=== PATIENT | female | born 1950 | race Caucasian/White ===

== ENCOUNTER 2019-02-26 18:50 | Inpatient (IN) | payer MEDICARE ==
[~2019-02-26] VITALS: Ht 167.6 cm; Wt 69.0 kg
[2019-02-26 20:00] VITALS: BP 130/69
[2019-02-26 20:30] VITALS: BP 130/69
[2019-02-26] MEDS ORDERED: ACETAMINOPHEN 650MG SUPP PR PRN (21:15)
[2019-02-26] MEDS ORDERED: IPRATROPIUM/ALBUTEROL 0.5-3(2.5)MG/3ML NEB HHN PRN (21:15)
[2019-02-26] MEDS ORDERED: DEXTROSE 50% WATER 50ML SYRINGE IV PRN ×2 (21:15→23:30)
[2019-02-26] MEDS ORDERED: INSULIN GLARGINE UD 100 UNITS/ML SYR SUBCUT SCH (22:00)
[2019-02-26] MEDS: ATORVASTATIN CALCIUM 40MG TABLET PO SCH (23:00)
[2019-02-26] MEDS: LISINOPRIL 20MG TABLET PO SCH (23:00)
[2019-02-26] MEDS: DEXAMETHASONE 4MG/ML 1ML VIAL IV SCH (23:01)
[2019-02-27] MEDS: LEVETIRACETAM 500 MG in SODIUM CHLORIDE 0.9% 100 ML IV SCH ×2 (05:41→09:05)
[2019-02-27] MEDS: INSULIN LISPRO 100 UNITS/ML SUBCUT SCH ×4 (06:00→17:28)
[2019-02-27 06:37] LABS: BASOPHILS % 0.2 % (0.0-2.0); EOSINOPHILS % 0.2 % (0.0-5.0); HEMATOCRIT. 37.5 % (36.0-48.0); HEMOGLOBIN. 12.6 g/dL (12.0-16.0); LYMPHOCYTES % 13.7 % (20.0-50.0); MEAN CORPUSCULAR HEMOGLOBIN 28.5 pg (28.0-32.0); MEAN CORPUSCULAR VOLUME 84.5 fL (81.0-99.0); MEAN PLATELET VOLUME 8.9 fl (7.4-10.4); MONOCYTES % 5.8 % (2.0-8.0); NEUTROPHILS % 80.1 % (40.0-76.0); PLATELET 265 x1000/uL (130-400); RED BLOOD CELL COUNT 4.43 mill/uL (4.2-5.4); RED CELL DISTRIBUTION WIDTH 13.4 % (11.6-14.6)
[2019-02-27] MEDS: BLOOD SUGAR DIAGNOSTIC STRIP TEST SCH ×4 (06:47→17:26)
[2019-02-27 07:12] LABS: CHLORIDE 112 mEq/L (98-107)
[2019-02-27 08:07] VITALS: BP 155/80
[2019-02-27] MEDS: DEXAMETHASONE 4MG/ML 1ML VIAL IV SCH (09:08)
[2019-02-27] MEDS: AMLODIPINE 5MG TABLET PO SCH (09:08)
[2019-02-27] MEDS: FAMOTIDINE 20MG TABLET PO SCH (09:08)
[2019-02-27] MEDS: LISINOPRIL 20MG TABLET PO SCH ×2 (09:08→21:19)
[2019-02-27] MEDS ORDERED: LEVOFLOXACIN 250MG PREMIX 50 ML IV SCH (10:00)
[2019-02-27] MEDS: LEVOFLOXACIN 250MG TABLET PO SCH (11:41)
[2019-02-27 16:55] LABS: CLARITY URINE CLEAR (CLEAR); COLOR URINE YELLOW (YELLOW); KETONES URINE NEGATIVE (NEGATIVE); LEUKOCYTE ESTERASE URINE TRACE (NEGATIVE); NITRITE URINE NEGATIVE (NEGATIVE); OCCULT BLOOD URINE TRACE (NEGATIVE); PH URINE 5.5 (4.5-8.0); PROTEIN URINE NEGATIVE (NEGATIVE); SPECIFIC GRAVITY URINE 1.011 (1.005-1.030); UROBILINOGEN URINE 0.2 E.U./dL (0.2-1.0)
[2019-02-27 20:00] VITALS: BP 167/83
[2019-02-27] MEDS: ATORVASTATIN CALCIUM 40MG TABLET PO SCH (21:18)
[2019-02-27] MEDS: LEVETIRACETAM 500MG TABLET PO SCH (21:19)
[2019-02-27 22:00] VITALS: BP 133/65
[2019-02-27] MEDS: INSULIN GLARGINE UD 100 UNITS/ML SYR SUBCUT SCH (22:00)
[2019-02-28] MEDS: BLOOD SUGAR DIAGNOSTIC STRIP TEST SCH ×4 (00:37→17:16)
[2019-02-28] MEDS: INSULIN LISPRO 100 UNITS/ML SUBCUT SCH ×4 (05:52→17:16)
[2019-02-28 08:00] VITALS: BP 156/80
[2019-02-28] MEDS: ACETAMINOPHEN 325MG TABLET PO PRN (08:52)
[2019-02-28] MEDS: FAMOTIDINE 20MG TABLET PO SCH (08:52)
[2019-02-28] MEDS: AMLODIPINE 5MG TABLET PO SCH ×2 (08:52→17:13)
[2019-02-28] MEDS: LEVETIRACETAM 500MG TABLET PO SCH ×2 (08:53→21:51)
[2019-02-28] MEDS: LISINOPRIL 20MG TABLET PO SCH ×2 (08:53→21:52)
[2019-02-28] MEDS ORDERED: IOHEXOL-350 100 ML BOTTLE ONE (11:29)
[2019-02-28] MEDS: LEVOFLOXACIN 250MG TABLET PO SCH (11:41)
[2019-02-28] MEDS: TRAMADOL 50MG TABLET PO PRN ×2 (16:50→22:56)
[2019-02-28 20:00] VITALS: BP 162/92
[2019-02-28] MEDS: ONDANSETRON HCL 4MG TABLET PO PRN (20:17)
[2019-02-28] MEDS: CLONIDINE 0.1MG TABLET PO PRN (20:29)
[2019-02-28] MEDS: ATORVASTATIN CALCIUM 40MG TABLET PO SCH (21:51)
[2019-02-28] MEDS: INSULIN GLARGINE UD 100 UNITS/ML SYR SUBCUT SCH (21:56)
[2019-02-28 22:52] LABS: CLARITY URINE CLEAR (CLEAR); COLOR URINE YELLOW (YELLOW); KETONES URINE NEGATIVE (NEGATIVE); LEUKOCYTE ESTERASE URINE NEGATIVE (NEGATIVE); NITRITE URINE NEGATIVE (NEGATIVE); OCCULT BLOOD URINE NEGATIVE (NEGATIVE); PROTEIN URINE NEGATIVE (NEGATIVE); SPECIFIC GRAVITY URINE 1.013 (1.005-1.030); UROBILINOGEN URINE 0.2 E.U./dL (0.2-1.0)
[2019-03-01] MEDS: INSULIN LISPRO 100 UNITS/ML SUBCUT SCH ×5 (01:56→21:45)
[2019-03-01] MEDS: CLONIDINE 0.1MG TABLET PO PRN ×2 (01:57→09:34)
[2019-03-01 06:36] LABS: BASOPHILS % 0.2 % (0.0-2.0); EOSINOPHILS % 0.4 % (0.0-5.0); HEMOGLOBIN. 12.6 g/dL (12.0-16.0); LYMPHOCYTES % 9.9 % (20.0-50.0); MEAN CORPUSCULAR HEMOGLOBIN 28.1 pg (28.0-32.0); MEAN CORPUSCULAR VOLUME 84.4 fL (81.0-99.0); MEAN PLATELET VOLUME 8.9 fl (7.4-10.4); NEUTROPHILS % 83.5 % (40.0-76.0); PLATELET 245 x1000/uL (130-400); RED CELL DISTRIBUTION WIDTH 13.5 % (11.6-14.6)
[2019-03-01] MEDS: BLOOD SUGAR DIAGNOSTIC STRIP TEST SCH ×6 (06:39→20:15)
[2019-03-01] MEDS: AMLODIPINE 5MG TABLET PO SCH ×2 (06:39→17:27)
[2019-03-01 06:53] LABS: CHLORIDE 100 mEq/L (98-107)
[2019-03-01 07:02] LABS: PHOSPHORUS 3.5 mg/dL (2.5-4.9)
[2019-03-01 07:03] LABS: LDL CHOLESTEROL 100 mg/dL (5-100)
[2019-03-01 07:05] LABS: HDL CHOLESTEROL 46 mg/dL (40-59)
[2019-03-01 07:06] LABS: FOLIC ACID (FOLATE) SERUM 18.9 ng/mL (>5.38)
[2019-03-01 07:13] LABS: TOTAL IRON BINDING CAPACITY 303 ug/dL (250-450)
[2019-03-01 08:07] VITALS: BP 151/68
[2019-03-01] MEDS: LEVETIRACETAM 500MG TABLET PO SCH ×2 (08:48→20:14)
[2019-03-01] MEDS: FAMOTIDINE 20MG TABLET PO SCH (08:48)
[2019-03-01] MEDS: LISINOPRIL 20MG TABLET PO SCH ×2 (08:48→20:15)
[2019-03-01] MEDS: TRAMADOL 50MG TABLET PO PRN ×2 (08:49→15:30)
[2019-03-01] MEDS ORDERED: CYANOCOBALAMIN 1000MCG/ML VIAL IM SCH (09:00)
[2019-03-01] MEDS: MAGNESIUM OXIDE 400MG TABLET PO SCH ×2 (09:34→20:14)
[2019-03-01] MEDS: ONDANSETRON HCL 4MG TABLET PO PRN (09:34)
[2019-03-01] MEDS: LEVOFLOXACIN 250MG TABLET PO SCH (11:13)
[2019-03-01] MEDS: ACETAMINOPHEN 325MG TABLET PO PRN (12:06)
[2019-03-01 15:31] VITALS: BP 125/61
[2019-03-01 20:00] VITALS: BP 107/61
[2019-03-01] MEDS: ATORVASTATIN CALCIUM 40MG TABLET PO SCH (20:14)
[2019-03-01] MEDS ORDERED: INSULIN LISPRO 100 UNITS/ML SUBCUT SCH (21:00)
[2019-03-01] MEDS: INSULIN GLARGINE UD 100 UNITS/ML SYR SUBCUT SCH (21:46)
[2019-03-02] MEDS: BLOOD SUGAR DIAGNOSTIC STRIP TEST SCH ×4 (05:27→21:38)
[2019-03-02] MEDS: AMLODIPINE 5MG TABLET PO SCH ×2 (05:27→17:13)
[2019-03-02] MEDS: INSULIN LISPRO 100 UNITS/ML SUBCUT SCH ×4 (06:13→21:52)
[2019-03-02 06:34] LABS: CHLORIDE 100 mEq/L (98-107)
[2019-03-02 06:48] LABS: BASOPHILS % 0.5 % (0.0-2.0); HEMATOCRIT. 36.6 % (36.0-48.0); HEMOGLOBIN. 12.3 g/dL (12.0-16.0); LYMPHOCYTES % 15.4 % (20.0-50.0); MEAN CORPUSCULAR HEMOGLOBIN 28.3 pg (28.0-32.0); MEAN CORPUSCULAR VOLUME 84.6 fL (81.0-99.0); MEAN PLATELET VOLUME 8.6 fl (7.4-10.4); MONOCYTES % 7.9 % (2.0-8.0); NEUTROPHILS % 75.2 % (40.0-76.0); PLATELET 241 x1000/uL (130-400); RED BLOOD CELL COUNT 4.32 mill/uL (4.2-5.4); RED CELL DISTRIBUTION WIDTH 13.5 % (11.6-14.6)
[2019-03-02 06:51] LABS: T4 FREE 1.05 ng/dL (0.76-1.46)
[2019-03-02] MEDS: LEVETIRACETAM 500MG TABLET PO SCH ×2 (08:18→21:33)
[2019-03-02] MEDS: TRAMADOL 50MG TABLET PO PRN (08:18)
[2019-03-02] MEDS: LISINOPRIL 20MG TABLET PO SCH (08:18)
[2019-03-02] MEDS: FAMOTIDINE 20MG TABLET PO SCH (08:18)
[2019-03-02] MEDS: MAGNESIUM OXIDE 400MG TABLET PO SCH (08:18)
[2019-03-02 08:25] VITALS: BP 154/70
[2019-03-02] MEDS: ONDANSETRON HCL 4MG TABLET PO PRN (08:45)
[2019-03-02] MEDS: CLONIDINE 0.1MG TABLET PO PRN ×2 (09:23→18:29)
[2019-03-02] MEDS ORDERED: OXYCODONE HCL 5MG TABLET PO PRN (09:45)
[2019-03-02] MEDS ORDERED: NA PHOS,M-B/NA PHOS,DI-BA ENEMA 118ML PR NR (09:45)
[2019-03-02] MEDS: SORBITOL 70% SOLN 30ML PO NR ×2 (10:01→10:15)
[2019-03-02 11:00] VITALS: BP 135/67
[2019-03-02] MEDS ORDERED: BISACODYL 10MG SUPP PR NR (11:00)
[2019-03-02] MEDS: LEVOFLOXACIN 250MG TABLET PO SCH (12:01)
[2019-03-02] MEDS: LACTULOSE 20G/30ML UDC PO SCH ×3 (12:53→21:33)
[2019-03-02] MEDS: NEBIVOLOL HCL 5 MG TABLET PO SCH (13:39)
[2019-03-02] MEDS: DOCUSATE SODIUM 100MG CAPSULE PO SCH (16:33)
[2019-03-02] MEDS: BUTALBITAL/ACETAMINOPHEN/CAFFEINE 50/325/40MG TABLET PO PRN (18:30)
[2019-03-02 20:00] VITALS: BP 113/47
[2019-03-02] MEDS ORDERED: AMLODIPINE 5MG TABLET PO SCH (21:00)
[2019-03-02] MEDS: ATORVASTATIN CALCIUM 40MG TABLET PO SCH (21:33)
[2019-03-02] MEDS: POLYETHYLENE GLYCOL 3350 (17GM) 1 DOSE PACK PO SCH (21:33)
[2019-03-02] MEDS: LISINOPRIL 10MG TABLET PO SCH (21:38)
[2019-03-02] MEDS: INSULIN GLARGINE UD 100 UNITS/ML SYR SUBCUT SCH (21:52)
[2019-03-03] MEDS: INSULIN LISPRO 100 UNITS/ML SUBCUT SCH ×4 (05:32→22:07)
[2019-03-03] MEDS: BLOOD SUGAR DIAGNOSTIC STRIP TEST SCH ×4 (05:32→21:48)
[2019-03-03] MEDS: AMLODIPINE 5MG TABLET PO SCH ×2 (05:32→17:59)
[2019-03-03 06:53] LABS: BASOPHILS % 0.7 % (0.0-2.0); EOSINOPHILS % 1.1 % (0.0-5.0); HEMATOCRIT. 37.1 % (36.0-48.0); HEMOGLOBIN. 12.3 g/dL (12.0-16.0); LYMPHOCYTES % 22.6 % (20.0-50.0); MEAN CORPUSCULAR HEMOGLOBIN 28.2 pg (28.0-32.0); MEAN PLATELET VOLUME 8.7 fl (7.4-10.4); MONOCYTES % 9.5 % (2.0-8.0); NEUTROPHILS % 66.1 % (40.0-76.0); PLATELET 272 x1000/uL (130-400); RED BLOOD CELL COUNT 4.36 mill/uL (4.2-5.4); RED CELL DISTRIBUTION WIDTH 13.4 % (11.6-14.6)
[2019-03-03 06:58] LABS: CHLORIDE 104 mEq/L (98-107)
[2019-03-03 08:00] VITALS: BP 135/53
[2019-03-03] MEDS: ACETAMINOPHEN 325MG TABLET PO PRN (09:23)
[2019-03-03] MEDS: LEVETIRACETAM 500MG TABLET PO SCH ×2 (09:55→21:48)
[2019-03-03] MEDS: NEBIVOLOL HCL 5 MG TABLET PO SCH (09:56)
[2019-03-03] MEDS: FAMOTIDINE 20MG TABLET PO SCH (09:56)
[2019-03-03] MEDS: DOCUSATE SODIUM 100MG CAPSULE PO SCH ×2 (09:56→17:59)
[2019-03-03] MEDS: LISINOPRIL 10MG TABLET PO SCH ×2 (09:56→21:48)
[2019-03-03] MEDS: BUTALBITAL/ACETAMINOPHEN/CAFFEINE 50/325/40MG TABLET PO PRN (11:13)
[2019-03-03] MEDS: LEVOFLOXACIN 250MG TABLET PO SCH (11:13)
[2019-03-03 20:00] VITALS: BP 128/79
[2019-03-03] MEDS: POLYETHYLENE GLYCOL 3350 (17GM) 1 DOSE PACK PO SCH (21:48)
[2019-03-03] MEDS: ATORVASTATIN CALCIUM 40MG TABLET PO SCH (21:48)
[2019-03-03] MEDS: INSULIN GLARGINE UD 100 UNITS/ML SYR SUBCUT SCH (22:07)
[2019-03-04] MEDS: AMLODIPINE 5MG TABLET PO SCH ×2 (05:41→17:18)
[2019-03-04] MEDS: BLOOD SUGAR DIAGNOSTIC STRIP TEST SCH ×4 (05:41→21:33)
[2019-03-04] MEDS: INSULIN LISPRO 100 UNITS/ML SUBCUT SCH ×3 (05:41→17:18)
[2019-03-04 06:37] LABS: BASOPHILS % 0.3 % (0.0-2.0); EOSINOPHILS % 1.2 % (0.0-5.0); HEMATOCRIT. 36.7 % (36.0-48.0); HEMOGLOBIN. 12.5 g/dL (12.0-16.0); LYMPHOCYTES % 21.3 % (20.0-50.0); MEAN CORPUSCULAR HEMOGLOBIN 28.7 pg (28.0-32.0); MEAN CORPUSCULAR VOLUME 84.5 fL (81.0-99.0); MEAN PLATELET VOLUME 8.2 fl (7.4-10.4); MONOCYTES % 8.2 % (2.0-8.0); PLATELET 292 x1000/uL (130-400); RED BLOOD CELL COUNT 4.35 mill/uL (4.2-5.4); RED CELL DISTRIBUTION WIDTH 13.4 % (11.6-14.6)
[2019-03-04 07:17] LABS: CHLORIDE 103 mEq/L (98-107)
[2019-03-04 08:25] VITALS: BP 147/71
[2019-03-04] MEDS: FAMOTIDINE 20MG TABLET PO SCH (08:34)
[2019-03-04] MEDS: NEBIVOLOL HCL 5 MG TABLET PO SCH (08:34)
[2019-03-04] MEDS: LEVETIRACETAM 500MG TABLET PO SCH ×2 (08:34→21:16)
[2019-03-04] MEDS: LISINOPRIL 10MG TABLET PO SCH (08:34)
[2019-03-04] MEDS: DOCUSATE SODIUM 100MG CAPSULE PO SCH ×2 (08:34→17:18)
[2019-03-04] MEDS: LEVOFLOXACIN 250MG TABLET PO SCH (11:27)
[2019-03-04] MEDS: LEVOTHYROXINE SODIUM 25MCG TABLET PO SCH (11:27)
[2019-03-04 11:30] VITALS: BP 150/74
[2019-03-04] MEDS: BUTALBITAL/ACETAMINOPHEN/CAFFEINE 50/325/40MG TABLET PO PRN (11:37)
[2019-03-04 20:00] VITALS: BP 167/67
[2019-03-04] MEDS: ATORVASTATIN CALCIUM 40MG TABLET PO SCH (21:16)
[2019-03-04] MEDS: LISINOPRIL 20MG TABLET PO SCH (21:17)
[2019-03-04] MEDS: POLYETHYLENE GLYCOL 3350 (17GM) 1 DOSE PACK PO SCH (21:17)
[2019-03-04] MEDS: INSULIN GLARGINE UD 100 UNITS/ML SYR SUBCUT SCH (21:37)
[2019-03-05 04:15] LABS: 25-HYDROXY VITAMIN D3 15 ng/mL (.)
[2019-03-05] MEDS: BLOOD SUGAR DIAGNOSTIC STRIP TEST SCH ×4 (06:01→21:30)
[2019-03-05] MEDS: AMLODIPINE 5MG TABLET PO SCH ×2 (06:02→17:55)
[2019-03-05] MEDS: LEVOTHYROXINE SODIUM 25MCG TABLET PO SCH (06:02)
[2019-03-05] MEDS: INSULIN LISPRO (HIGH DOSE) 100 UNITS/ML SUBCUT SCH ×3 (06:02→17:00)
[2019-03-05 06:58] LABS: CHLORIDE 104 mEq/L (98-107)
[2019-03-05] MEDS ORDERED: INSULIN LISPRO 100 UNITS/ML SUBCUT SCH (07:00)
[2019-03-05 07:05] LABS: BASOPHILS % 0.5 % (0.0-2.0); EOSINOPHILS % 0.8 % (0.0-5.0); HEMATOCRIT. 37.4 % (36.0-48.0); HEMOGLOBIN. 12.6 g/dL (12.0-16.0); LYMPHOCYTES % 19.7 % (20.0-50.0); MEAN CORPUSCULAR HEMOGLOBIN 28.4 pg (28.0-32.0); MEAN CORPUSCULAR VOLUME 84.5 fL (81.0-99.0); MEAN PLATELET VOLUME 8.4 fl (7.4-10.4); MONOCYTES % 6.5 % (2.0-8.0); NEUTROPHILS % 72.5 % (40.0-76.0); PLATELET 286 x1000/uL (130-400); RED BLOOD CELL COUNT 4.43 mill/uL (4.2-5.4); RED CELL DISTRIBUTION WIDTH 13.5 % (11.6-14.6)
[2019-03-05 08:02] VITALS: BP 133/62
[2019-03-05] MEDS: LISINOPRIL 20MG TABLET PO SCH ×2 (08:21→21:29)
[2019-03-05] MEDS: DOCUSATE SODIUM 100MG CAPSULE PO SCH ×2 (08:21→17:52)
[2019-03-05] MEDS: LEVETIRACETAM 500MG TABLET PO SCH ×2 (08:22→21:28)
[2019-03-05] MEDS: NEBIVOLOL HCL 5 MG TABLET PO SCH (08:22)
[2019-03-05] MEDS: FAMOTIDINE 20MG TABLET PO SCH (08:22)
[2019-03-05] MEDS: BUTALBITAL/ACETAMINOPHEN/CAFFEINE 50/325/40MG TABLET PO PRN (08:33)
[2019-03-05] MEDS ORDERED: ERGOCALCIFEROL 50000UNITS CAPSULE PO SCH (13:30)
[2019-03-05 20:00] VITALS: BP 152/71
[2019-03-05] MEDS: ATORVASTATIN CALCIUM 40MG TABLET PO SCH (21:28)
[2019-03-05] MEDS: POLYETHYLENE GLYCOL 3350 (17GM) 1 DOSE PACK PO SCH (21:29)
[2019-03-05] MEDS: INSULIN GLARGINE UD 100 UNITS/ML SYR SUBCUT SCH (21:30)
[2019-03-06] MEDS: AMLODIPINE 5MG TABLET PO SCH ×2 (05:55→17:21)
[2019-03-06] MEDS: LEVOTHYROXINE SODIUM 25MCG TABLET PO SCH (05:55)
[2019-03-06] MEDS: BLOOD SUGAR DIAGNOSTIC STRIP TEST SCH ×4 (06:16→21:25)
[2019-03-06] MEDS: INSULIN LISPRO (HIGH DOSE) 100 UNITS/ML SUBCUT SCH ×3 (06:17→17:22)
[2019-03-06 06:40] LABS: BASOPHILS % 0.4 % (0.0-2.0); EOSINOPHILS % 0.7 % (0.0-5.0); HEMATOCRIT. 36.9 % (36.0-48.0); HEMOGLOBIN. 12.3 g/dL (12.0-16.0); LYMPHOCYTES % 18.3 % (20.0-50.0); MEAN CORPUSCULAR HEMOGLOBIN 28.1 pg (28.0-32.0); MEAN CORPUSCULAR VOLUME 84.5 fL (81.0-99.0); MEAN PLATELET VOLUME 8.1 fl (7.4-10.4); MONOCYTES % 4.9 % (2.0-8.0); NEUTROPHILS % 75.7 % (40.0-76.0); PLATELET 303 x1000/uL (130-400); RED BLOOD CELL COUNT 4.37 mill/uL (4.2-5.4); RED CELL DISTRIBUTION WIDTH 13.8 % (11.6-14.6)
[2019-03-06 07:13] LABS: CHLORIDE 104 mEq/L (98-107)
[2019-03-06 08:00] VITALS: BP 133/59
[2019-03-06] MEDS: NEBIVOLOL HCL 5 MG TABLET PO SCH (08:10)
[2019-03-06] MEDS: FAMOTIDINE 20MG TABLET PO SCH (08:47)
[2019-03-06] MEDS: LISINOPRIL 20MG TABLET PO SCH ×2 (08:47→21:22)
[2019-03-06] MEDS: LEVETIRACETAM 500MG TABLET PO SCH ×2 (08:47→21:23)
[2019-03-06] MEDS: DOCUSATE SODIUM 100MG CAPSULE PO SCH ×2 (08:47→17:21)
[2019-03-06] MEDS: POLYETHYLENE GLYCOL 3350 (17GM) 1 DOSE PACK PO SCH (21:22)
[2019-03-06] MEDS: ATORVASTATIN CALCIUM 40MG TABLET PO SCH (21:23)
[2019-03-06] MEDS: INSULIN GLARGINE UD 100 UNITS/ML SYR SUBCUT SCH (21:24)
[2019-03-06 22:19] VITALS: BP 148/63
[2019-03-07] MEDS: LEVOTHYROXINE SODIUM 25MCG TABLET PO SCH (06:07)
[2019-03-07] MEDS: BLOOD SUGAR DIAGNOSTIC STRIP TEST SCH ×4 (06:08→21:25)
[2019-03-07] MEDS: AMLODIPINE 5MG TABLET PO SCH ×2 (06:08→17:03)
[2019-03-07 06:25] LABS: BASOPHILS % 0.2 % (0.0-2.0); EOSINOPHILS % 0.5 % (0.0-5.0); HEMATOCRIT. 36.6 % (36.0-48.0); HEMOGLOBIN. 12.3 g/dL (12.0-16.0); LYMPHOCYTES % 17.5 % (20.0-50.0); MEAN CORPUSCULAR HEMOGLOBIN 28.5 pg (28.0-32.0); MEAN CORPUSCULAR VOLUME 84.8 fL (81.0-99.0); MEAN PLATELET VOLUME 8.3 fl (7.4-10.4); MONOCYTES % 4.6 % (2.0-8.0); NEUTROPHILS % 77.2 % (40.0-76.0); PLATELET 303 x1000/uL (130-400); RED BLOOD CELL COUNT 4.32 mill/uL (4.2-5.4); RED CELL DISTRIBUTION WIDTH 13.7 % (11.6-14.6)
[2019-03-07] MEDS: INSULIN LISPRO (HIGH DOSE) 100 UNITS/ML SUBCUT SCH ×3 (07:00→17:03)
[2019-03-07 07:50] LABS: CHLORIDE 103 mEq/L (98-107)
[2019-03-07 08:56] VITALS: BP 130/64
[2019-03-07] MEDS: NEBIVOLOL HCL 5 MG TABLET PO SCH (08:56)
[2019-03-07] MEDS: DOCUSATE SODIUM 100MG CAPSULE PO SCH ×2 (08:57→17:01)
[2019-03-07] MEDS: LEVETIRACETAM 500MG TABLET PO SCH ×2 (08:57→21:32)
[2019-03-07] MEDS: LISINOPRIL 20MG TABLET PO SCH ×2 (08:57→21:33)
[2019-03-07] MEDS: FAMOTIDINE 20MG TABLET PO SCH (08:57)
[2019-03-07 20:00] VITALS: BP 153/67
[2019-03-07] MEDS: ATORVASTATIN CALCIUM 40MG TABLET PO SCH (21:32)
[2019-03-07] MEDS: INSULIN GLARGINE UD 100 UNITS/ML SYR SUBCUT SCH (21:32)
[2019-03-07] MEDS: POLYETHYLENE GLYCOL 3350 (17GM) 1 DOSE PACK PO SCH (21:33)
[2019-03-08] MEDS: BLOOD SUGAR DIAGNOSTIC STRIP TEST SCH (05:58)
[2019-03-08] MEDS: LEVOTHYROXINE SODIUM 25MCG TABLET PO SCH (05:58)
[2019-03-08] MEDS: INSULIN LISPRO (HIGH DOSE) 100 UNITS/ML SUBCUT SCH (06:07)
[2019-03-08] MEDS: AMLODIPINE 5MG TABLET PO SCH (06:07)
[2019-03-08 08:25] VITALS: BP 139/58
[2019-03-08] MEDS: LEVETIRACETAM 500MG TABLET PO SCH (08:49)
[2019-03-08] MEDS: FAMOTIDINE 20MG TABLET PO SCH (08:50)
[2019-03-08] MEDS: LISINOPRIL 20MG TABLET PO SCH (08:50)
[2019-03-08] MEDS: DOCUSATE SODIUM 100MG CAPSULE PO SCH (08:50)
[2019-03-08] MEDS: NEBIVOLOL HCL 5 MG TABLET PO SCH (08:50)
[2019-03-08 09:58] VITALS: BP 139/58
== END 2019-03-08 11:30 | disposition home health service (06) | DRG 56 ==
PROVIDERS: ADMIT Physical Medicine & Rehabilitation Spinal Cord Injury Medicine; ATTEND Internal Medicine
PROC: 4A10X4Z Monitoring of Central Nervous Electrical Activity, External Approach (ICD-10-PCS; principal; 2019-03-05)
DX: I69.351 Hemiplegia and hemiparesis following cerebral infarction affecting right dominant side (principal); I61.5 Nontraumatic intracerebral hemorrhage, intraventricular; E43 Unspecified severe protein-calorie malnutrition; I61.0 Nontraumatic intracerebral hemorrhage in hemisphere, subcortical; N17.9 Acute kidney failure, unspecified; R47.01 Aphasia; G91.9 Hydrocephalus, unspecified; D72.829 Elevated white blood cell count, unspecified; E11.65 Type 2 diabetes mellitus with hyperglycemia; E78.00 Pure hypercholesterolemia, unspecified; E78.5 Hyperlipidemia, unspecified; E83.51 Hypocalcemia; F01.50 Vascular dementia, unspecified severity, without behavioral disturbance, psychotic disturbance, mood disturbance, and anxiety; F32.9 Major depressive disorder, single episode, unspecified; F41.9 Anxiety disorder, unspecified; I10 Essential (primary) hypertension; R13.10 Dysphagia, unspecified; R47.1 Dysarthria and anarthria; R53.81 Other malaise; R26.9 Unspecified abnormalities of gait and mobility; T38.0X5A Adverse effect of glucocorticoids and synthetic analogues, initial encounter; E83.42 Hypomagnesemia; I16.0 Hypertensive urgency; G93.89 Other specified disorders of brain; Z87.891 Personal history of nicotine dependence; Z68.24 Body mass index [BMI] 24.0-24.9, adult; Z82.49 Family history of ischemic heart disease and other diseases of the circulatory system; Z90.721 Acquired absence of ovaries, unilateral; Z79.899 Other long term (current) drug therapy; Z79.4 Long term (current) use of insulin; Z87.440 Personal history of urinary (tract) infections; Y92.89 Other specified places as the place of occurrence of the external cause
CPT/HCPCS: 36415; 70496; 71046; 80048; 80061; 82306; 82607; 82728; 82746; 82962; 83036; 83540; 83550; 83735; 84100; 84134; 84145; 84439; 84443; 84481; 86376; 92523; 93005; 93970; 97110; 97112; 97116; 97162; 97166; 97530; 97535; J1100; J1815; J1953; J1956; J3420; J7050; Q0162; Q9967; A5200

== ENCOUNTER 2019-05-13 01:04 | Inpatient (IN) | payer MEDICARE ==
[2019-05-13] VITALS (71 sets, daily range): BP systolic 102–151; BP diastolic 54–74
[~2019-05-13] VITALS: Ht 170.2 cm; Wt 72.6 kg
[2019-05-13] MEDS ORDERED: SODIUM CHLORIDE 0.9% 1,000 ML IV ONE (01:13)
[2019-05-13] MEDS ORDERED: ONDANSETRON HCL 4MG/2ML INJ IV ONE (01:45)
[2019-05-13] MEDS ORDERED: HYDRALAZINE 20MG/ML VIAL IV ONE (01:45)
[2019-05-13] MEDS ORDERED: DEXAMETHASONE 10 MG/ML VIAL IV ONE (01:45)
[2019-05-13] MEDS ORDERED: LEVETIRACETAM 500MG PREMIX 100 ML IV ONE (01:45)
[2019-05-13] MEDS ORDERED: NICARDIPINE 40MG/200ML PREMIX 200 ML IV PRN (01:45)
[2019-05-13 02:16] LABS: BASOPHILS % 0.5 % (0.0-2.0); HEMOGLOBIN. 12.7 g/dL (12.0-16.0); LYMPHOCYTES % 15.4 % (20.0-50.0); MEAN CORPUSCULAR HEMOGLOBIN 28.6 pg (28.0-32.0); MEAN CORPUSCULAR VOLUME 85.7 fL (81.0-99.0); MEAN PLATELET VOLUME 9.3 fl (7.4-10.4); MONOCYTES % 4.3 % (2.0-8.0); NEUTROPHILS % 78.8 % (40.0-76.0); PLATELET 285 x1000/uL (130-400); RED BLOOD CELL COUNT 4.44 mill/uL (4.2-5.4)
[2019-05-13 02:18] LABS: CHLORIDE 106 mEq/L (98-107)
[2019-05-13 02:22] LABS: ETHANOL BLOOD < 10 mg/dL
[2019-05-13 02:24] LABS: PARTIAL THROMBOPLASTIN TIME 21.2 sec (23.4-31.0); PROTHROMBIN TIME 10.7 sec (9.6-11.0)
[2019-05-13 02:26] LABS: CREATINE KINASE 27 IU/L (26-192)
[2019-05-13 02:29] LABS: CREATINE KINASE MB FRACTION < 1.0 ng/mL (0.5-3.6)
[2019-05-13] MEDS ORDERED: PIPERACILLIN/TAZ 3.375G PREMIX 50 ML IV ONE (03:00)
[2019-05-13] MEDS ORDERED: MANNITOL 12.5G (25%) VIAL 50ML IV ONE (03:00)
[2019-05-13] MEDS ORDERED: VANCOMYCIN 1 G PREMIX 200 ML IV SCH (03:00)
[2019-05-13] MEDS ORDERED: GADOBENATE DIMEGLUMINE 529 MG/ML 10ML IV ONE (03:52)
[2019-05-13] MEDS ORDERED: DAPA10TA MT (05:57)
[2019-05-13] MEDS ORDERED: LEVO50TA8 MT (05:57)
[2019-05-13] MEDS ORDERED: LIP40 MT (06:00)
[2019-05-13] MEDS ORDERED: LISI-604 MT (06:00)
[2019-05-13] MEDS ORDERED: AMLO5TAB4 MT (06:00)
[2019-05-13] MEDS ORDERED: NICARDIPINE 100 MG in SODIUM CHLORIDE 0.9% 60 ML IV PRN (08:00)
[2019-05-13] MEDS: DEXT 5%/LACTATED RINGERS 1,000 ML IV SCH (09:07)
[2019-05-13] MEDS: LEVETIRACETAM 500 MG in SODIUM CHLORIDE 0.9% 100 ML IV SCH ×2 (09:19→21:38)
[2019-05-13] MEDS ORDERED: DEXTROSE 50% WATER 50ML SYRINGE IV PRN (10:00)
[2019-05-13] MEDS ORDERED: ONDANSETRON HCL 4MG/2ML INJ IV PRN (10:00)
[2019-05-13] MEDS ORDERED: HYDRALAZINE 20MG/ML VIAL IV PRN (10:15)
[2019-05-13] MEDS ORDERED: IPRATROPIUM/ALBUTEROL 0.5-3(2.5)MG/3ML NEB HHN PRN (11:15)
[2019-05-13] MEDS ORDERED: BENZONATATE 100MG CAPSULE PO PRN (11:15)
[2019-05-13] MEDS: DEXAMETHASONE 4MG/ML 1ML VIAL IV SCH ×3 (11:30→23:12)
[2019-05-13] MEDS: PIPERACILLIN/TAZOBACTAM 3.375 G in DEXT 5% WATER 100 ML IV SCH ×3 (11:30→23:10)
[2019-05-13] MEDS: BLOOD SUGAR DIAGNOSTIC STRIP TEST SCH ×3 (11:43→21:28)
[2019-05-13] MEDS: INSULIN LISPRO 100 UNITS/ML SUBCUT SCH ×3 (11:48→21:39)
[2019-05-13 14:43] LABS: CLARITY URINE CLOUDY (CLEAR); COLOR URINE YELLOW (YELLOW); KETONES URINE 4+ (NEGATIVE); LEUKOCYTE ESTERASE URINE NEGATIVE (NEGATIVE); NITRITE URINE NEGATIVE (NEGATIVE); OCCULT BLOOD URINE NEGATIVE (NEGATIVE); PROTEIN URINE NEGATIVE (NEGATIVE); SPECIFIC GRAVITY URINE 1.025 (1.005-1.030); UROBILINOGEN URINE 0.2 E.U./dL (0.2-1.0)
[2019-05-13 15:09] LABS: *AMPHETAMINES SCREEN URINE NEGATIVE (NEGATIVE); *BARBITURATES SCREEN URINE NEGATIVE (NEGATIVE); *BENZODIAZEPINES SCREEN URINE NEGATIVE (NEGATIVE); *COCAINE SCREEN URINE NEGATIVE (NEGATIVE); METHADONE URINE SCREEN NEGATIVE (NEGATIVE); OPIATES URINE SCREEN NEGATIVE (NEGATIVE)
[2019-05-13 15:10] LABS: CANNABINOID URINE SCREEN NEGATIVE (NEGATIVE); PHENCYCLIDINE URINE SCREEN NEGATIVE (NEGATIVE)
[2019-05-13] MEDS: VANCOMYCIN 750 MG PREMIX 150 ML IV SCH (18:22)
[2019-05-14] VITALS (93 sets, daily range): BP systolic 89–144; BP diastolic 43–68
[2019-05-14] MEDS: DEXT 5%/LACTATED RINGERS 1,000 ML IV SCH (04:57)
[2019-05-14] MEDS: PIPERACILLIN/TAZOBACTAM 3.375 G in DEXT 5% WATER 100 ML IV SCH ×4 (05:01→23:51)
[2019-05-14] MEDS: DEXAMETHASONE 4MG/ML 1ML VIAL IV SCH ×4 (05:02→23:50)
[2019-05-14 05:42] LABS: HEMATOCRIT. 36.7 % (36.0-48.0); HEMOGLOBIN. 12.4 g/dL (12.0-16.0); MEAN CORPUSCULAR HEMOGLOBIN 28.6 pg (28.0-32.0); MEAN CORPUSCULAR VOLUME 84.5 fL (81.0-99.0); MEAN PLATELET VOLUME 9.4 fl (7.4-10.4); PLATELET 315 x1000/uL (130-400); RED BLOOD CELL COUNT 4.34 mill/uL (4.2-5.4); RED CELL DISTRIBUTION WIDTH 16.4 % (11.6-14.6)
[2019-05-14] MEDS: BLOOD SUGAR DIAGNOSTIC STRIP TEST SCH ×4 (05:49→21:54)
[2019-05-14 06:05] LABS: CHLORIDE 108 mEq/L (98-107)
[2019-05-14] MEDS: VANCOMYCIN 750 MG PREMIX 150 ML IV SCH ×2 (06:35→18:22)
[2019-05-14] MEDS: INSULIN LISPRO 100 UNITS/ML SUBCUT SCH ×4 (06:35→21:57)
[2019-05-14 07:56] LABS: PLATELET ESTIMATE NORMAL
[2019-05-14] MEDS: LEVETIRACETAM 500 MG in SODIUM CHLORIDE 0.9% 100 ML IV SCH ×2 (08:14→21:54)
[2019-05-14] MEDS ORDERED: SODIUM CHLORIDE 0.9% 1000ML BAG (SEPSIS BOLUS) IV ONE (08:45)
[2019-05-14] MEDS: INSULIN GLARGINE UD 100 UNITS/ML SYR SUBCUT SCH ×2 (12:15→21:55)
[2019-05-15] VITALS (32 sets, daily range): BP systolic 74–124; BP diastolic 41–68
[2019-05-15] MEDS: DEXT 5%/LACTATED RINGERS 1,000 ML IV SCH (05:00)
[2019-05-15] MEDS: PIPERACILLIN/TAZOBACTAM 3.375 G in DEXT 5% WATER 100 ML IV SCH ×3 (05:00→17:30)
[2019-05-15] MEDS: DEXAMETHASONE 4MG/ML 1ML VIAL IV SCH ×3 (05:00→17:30)
[2019-05-15 05:15] LABS: HEMATOCRIT. 37.3 % (36.0-48.0); HEMOGLOBIN. 12.6 g/dL (12.0-16.0); MEAN CORPUSCULAR HEMOGLOBIN 28.7 pg (28.0-32.0); MEAN CORPUSCULAR VOLUME 84.6 fL (81.0-99.0); MEAN PLATELET VOLUME 9.2 fl (7.4-10.4); PLATELET 325 x1000/uL (130-400); RED BLOOD CELL COUNT 4.41 mill/uL (4.2-5.4); RED CELL DISTRIBUTION WIDTH 16.2 % (11.6-14.6)
[2019-05-15 05:18] LABS: CHLORIDE 111 mEq/L (98-107)
[2019-05-15] MEDS: VANCOMYCIN 750 MG PREMIX 150 ML IV SCH (05:58)
[2019-05-15] MEDS: BLOOD SUGAR DIAGNOSTIC STRIP TEST SCH ×4 (06:02→20:47)
[2019-05-15] MEDS: INSULIN LISPRO 100 UNITS/ML SUBCUT SCH ×4 (06:05→21:14)
[2019-05-15 09:08] LABS: PLATELET ESTIMATE NORMAL
[2019-05-15] MEDS: LEVETIRACETAM 500 MG in SODIUM CHLORIDE 0.9% 100 ML IV SCH (09:24)
[2019-05-15] MEDS: INSULIN GLARGINE UD 100 UNITS/ML SYR SUBCUT SCH (09:30)
[2019-05-16] VITALS: BP 125/69
[2019-05-16] MEDS: PIPERACILLIN/TAZOBACTAM 3.375 G in DEXT 5% WATER 100 ML IV SCH ×4 (01:44→17:45)
[2019-05-16] MEDS: DEXAMETHASONE 4MG/ML 1ML VIAL IV SCH ×4 (01:44→17:45)
[2019-05-16] MEDS: INSULIN GLARGINE UD 100 UNITS/ML SYR SUBCUT SCH ×3 (01:46→22:18)
[2019-05-16] MEDS: LEVETIRACETAM 500 MG in SODIUM CHLORIDE 0.9% 100 ML IV SCH ×3 (03:29→20:57)
[2019-05-16 04:00] VITALS: BP 124/67
[2019-05-16] MEDS: BLOOD SUGAR DIAGNOSTIC STRIP TEST SCH ×4 (06:15→20:57)
[2019-05-16 08:00] VITALS: BP 144/87
[2019-05-16] MEDS: INSULIN LISPRO 100 UNITS/ML SUBCUT SCH ×4 (08:23→21:00)
[2019-05-16 12:00] VITALS: BP 143/72
[2019-05-16 16:00] VITALS: BP 141/61
[2019-05-16 20:00] VITALS: BP 148/81
[2019-05-17] VITALS (7 sets, daily range): BP systolic 105–165; BP diastolic 70–86
[2019-05-17] MEDS: BLOOD SUGAR DIAGNOSTIC STRIP TEST SCH ×3 (06:58→17:45)
[2019-05-17] MEDS: PIPERACILLIN/TAZOBACTAM 3.375 G in DEXT 5% WATER 100 ML IV SCH ×5 (06:58→17:25)
[2019-05-17] MEDS: DEXAMETHASONE 4MG/ML 1ML VIAL IV SCH ×3 (08:45→17:26)
[2019-05-17] MEDS ORDERED: LEVETIRACETAM 500MG TABLET PO SCH (09:00)
[2019-05-17] MEDS: INSULIN LISPRO 100 UNITS/ML SUBCUT SCH ×3 (09:15→18:08)
[2019-05-17] MEDS: INSULIN GLARGINE UD 100 UNITS/ML SYR SUBCUT SCH (09:39)
== END 2019-05-17 19:50 | disposition hospice, home (50) | DRG 871 ==
LOC: ER 01:04 → MICUSO 02:48 → EDBEDREQ 02:57 → EDBEDREQSVC 02:57 → EDBEDREQTM 02:57 → ENRESERV 03:08 → MICUNO 05-14 18:09 → 6EST 05-15 14:50
PROVIDERS: ADMIT Internal Medicine Nephrology; ATTEND Internal Medicine Nephrology
DX: A41.9 Sepsis, unspecified organism (principal); J69.0 Pneumonitis due to inhalation of food and vomit; G93.6 Cerebral edema; I61.5 Nontraumatic intracerebral hemorrhage, intraventricular; G93.49 Other encephalopathy; I69.351 Hemiplegia and hemiparesis following cerebral infarction affecting right dominant side; I31.3 Pericardial effusion (noninflammatory); G91.9 Hydrocephalus, unspecified; R47.01 Aphasia; Z66 Do not resuscitate; G93.89 Other specified disorders of brain; I11.9 Hypertensive heart disease without heart failure; E03.9 Hypothyroidism, unspecified; E11.65 Type 2 diabetes mellitus with hyperglycemia; Z87.891 Personal history of nicotine dependence; Z79.84 Long term (current) use of oral hypoglycemic drugs; Z79.899 Other long term (current) drug therapy
CPT/HCPCS: 36415; 70553; 71045; 71250; 74176; 80048; 80202; 80305; 80320; 81003; 82550; 82553; 82962; 83036; 83605; 83880; 84145; 84443; 84484; 92610; 93005; 93970; 97110; 97162; 97166; 97530; 97535; 99291; A9577; J0360; J1100; J1815; J1953; J2150; J2405; J2543; J3370; J3490; J7030; J7050; J7060; J7121; G0480